=== PATIENT | male | born 1945 | race Caucasian/White ===

== ENCOUNTER → 2021-09-04 17:06 | Outpatient (BNVA) | payer MEDICARE, SELFPAY | PROVIDERS: Visit Provider Nurse Practitioner Family | DX: Z86.73 Personal history of transient ischemic attack (TIA), and cerebral infarction without residual deficits (principal); R53.1 Weakness; Z74.09 Other reduced mobility; Z78.9 Other specified health status; I10 Essential (primary) hypertension; D50.9 Iron deficiency anemia, unspecified; E55.9 Vitamin D deficiency, unspecified | CPT/HCPCS: 80053; 82306; 82728; 83550; 85025 ==

== ENCOUNTER 2021-09-12 11:30 | Outpatient (RCR) | payer MEDICARE, SELFPAY | END 2021-10-05 23:59 | disposition home or self-care (01) | LOC: SPT 11:30 | PROVIDERS: Referring Provider Nurse Practitioner Family; Visit Provider Nurse Practitioner Family | DX: Z86.73 Personal history of transient ischemic attack (TIA), and cerebral infarction without residual deficits (principal); R53.1 Weakness; Z74.09 Other reduced mobility; Z78.9 Other specified health status | CPT/HCPCS: 97110; 97116; 97161 ==